=== PATIENT | female | born 1945 | race Caucasian/White ===

== ENCOUNTER 2018-04-23 09:49 | Day surgery (SDC) | payer MEDICARE, OTHER ==
[2018-04-23] MEDS ORDERED: LACTATED RINGERS 1,000 ML IV ONE ×4 (10:10→10:55)
[2018-04-23] MEDS ORDERED: fentaNYL 250 MCG/5 ML VIAL IVP ONE (10:26)
[2018-04-23] MEDS ORDERED: MIDAZOLAM 2 MG/2 ML VIAL IVP ONE (10:26)
[2018-04-23 11:58] VITALS: BP 111/68
== END 2018-04-23 09:50 | disposition home or self-care (01) ==
LOC: SDS 09:49
PROVIDERS: ATTEND Surgery
PROC: 0DJD8ZZ Inspection of Lower Intestinal Tract, Via Natural or Artificial Opening Endoscopic (ICD-10-PCS; principal; 2018-04-23 10:45)
DX: Z12.11 Encounter for screening for malignant neoplasm of colon (principal); K57.30 Diverticulosis of large intestine without perforation or abscess without bleeding; K64.8 Other hemorrhoids; Z80.0 Family history of malignant neoplasm of digestive organs
CPT/HCPCS: G0105; J3010; J7120

== ENCOUNTER 2019-09-23 14:08 | Emergency (ER) | payer MEDICARE, OTHER ==
[2019-09-23 14:51] LABS: BASOPHILS % (AUTO) 0.2 %; EOSINOPHILS % (AUTO) 0.5 %; HGB - HEMOGLOBIN 12.1 g/dL (12.0-16.0); LYMPHOCYTES # (AUTO) 0.7 10^3/uL (1.5-3.5); LYMPHOCYTES % (AUTO) 12.2 %; MEAN CORPUSCULAR HEMOGLOBIN 28.5 pg (27.0-31.0); MEAN CORPUSCULAR HGB CONC 31.8 g/dL (32.0-36.0); MEAN CORPUSCULAR VOLUME 89.9 fL (81.0-99.0); MEAN PLATELET VOLUME 9.2 fL (7.9-10.8); MONOCYTES # (AUTO) 0.4 10^3/uL (0.0-1.0); MONOCYTES % (AUTO) 6.9 %; NEUTROPHILS # (AUTO) 4.4 10^3/uL (1.5-6.6); PLT - PLATELET COUNT 336 10^3/uL (130-450); RED BLOOD COUNT 4.24 10^6/uL (4.20-5.40); RED CELL DISTRIBUTION WIDTH 18.2 % (12.0-15.0); WHITE BLOOD COUNT 5.5 x10^3/uL (4.8-10.8)
[2019-09-23 15:09] LABS: ALBUMIN 3.9 g/dL (3.2-5.5); ALBUMIN/GLOBULIN RATIO 1.1 (1.0-2.2); BILIRUBIN,TOTAL 0.7 mg/dL (0.2-1.0); CALCIUM 8.4 mg/dL (8.5-10.3); CREATININE 0.5 mg/dL (0.4-1.0); TOTAL PROTEIN 7.6 g/dL (6.7-8.2)
[2019-09-23] MEDS ORDERED: SODIUM CHLORIDE 0.9% 1,000 ML IV ONE ×2 (15:37)
--- NOTE | 2019-09-23 16:04 | ED Physician Documentation ---
History of Present Illness - Stated complaint Stated Complaint: N/V/D - Chief complaint Chief Complaint: Abd Pain - History obtained from History obtained from: Patient, Family - History of Present Illness Timing: How many weeks ago (6) Pain level max: 3 Pain level now: 0 - Additonal information Additional information: 74-year-old female presents to the emergency department with intermittent diarrhea for the past 6 weeks since returning from [facility]. She saw her doctor, had negative stool cultures and negative C. difficile testing. She was given azithromycin for presumed traveler's diarrhea. She took this once, but states that her gastroesophageal reflux disease worsened from this and so she stopped it. She states that she has diarrhea 0-8 times per day. No fevers. No blood in the stool. Occasional abdominal cramping. Review of Systems Constitutional: denies: Fever, Chills Respiratory: denies: Cough GI: reports: Diarrhea. denies: Abdominal Pain, Vomiting, Hematemesis, Bloody / black stool Skin: denies: Rash Musculoskeletal: denies: Neck pain, Back pain Neurologic: denies: Headache PD PAST MEDICAL HISTORY - Past Medical History Cardiovascular: None Respiratory: None Endocrine/Autoimmune: HyPOthyroidism GI: GERD, Hepatitis, Diverticulitis, Other : None HEENT: None Psych: Anxiety Musculoskeletal: Osteoarthritis, Chronic back pain Derm: None - Past Surgical History Past Surgical History: Yes General: Colonoscopy Ortho: Other HEENT: Tonsil/Adenoidectomy - Present Medications Home Medications: Ambulatory Orders Medication Instructions Recorded Confirmed Levothyroxine [Synthroid] 125 mcg PO DAILY 06/23/15 04/23/18 Omeprazole [PriLOSEC] 20 mg PO DAILY 06/23/15 04/23/18 PARoxetine [Paxil] 30 mg PO DAILY 06/23/15 04/23/18 azaTHIOprine [Imuran] 50 mg PO DAILY 06/23/15 04/23/18 Anastrozole [Arimidex] 1 mg PO DAILY 04/23/18 04/23/18 Duran Cit/Mag/D3/Zn/[place] Continuous [place]urn/[place]/Bor 1 each PO DAILY 04/23/18 04/23/18 [Citracal-Vit D + Magnesium Tab] [place]-3/Dha/Epa/Fish Oil [Fish Oil 1 each PO DAILY 04/23/18 04/23/18 1,000 mg Softgel] raNITIdine HCl [Zantac] 300 mg PO BID 04/23/18 04/23/18 Metronidazole [Flagyl] 500 mg PO TID #30 tablet 09/23/19 - Allergies Allergies/Adverse Reactions: Allergies Allergy/AdvReac Type Severity Reaction Status Date / Time fluconazole [From Diflucan] Allergy Hives Verified 09/23/19 14:27 - Social History Does the pt smoke?: No Smoking Status: Never smoker Does the pt drink ETOH?: Yes Does the pt have substance abuse?: No PD ED PE NORMAL - Vitals Vital signs reviewed: Yes - General General: Alert and oriented X 3, No acute distress, Well developed/nourished - HEENT HEENT: Moist mucous membranes - Neck Neck: Supple, no meningeal sign - Cardiac Cardiac: RRR, Strong equal pulses - Respiratory Respiratory: No respiratory distress, Clear bilaterally - Abdomen Abdomen: Soft, Non tender, Non distended - Derm Derm: Warm and dry - Extremities Extremities: No edema - Neuro Neuro: Alert and oriented X 3 - Psych Psych: Normal mood, Normal affect Results - Vitals Vitals: Vital Signs - 24 hr 09/23/19 09/23/19 14:24 17:05 Temperature 36.7 C Heart Rate 113 H 93 Respiratory 16 18 Rate Blood Pressure 109/56 L 117/70 O2 Saturation 96 97 Oxygen O2 Source Room air - Labs Labs: Microbiology 09/23/19 17:15 Campylobacter Antigen Assay - Final Stool Laboratory Tests 09/23/19 09/23/19 09/23/19 14:47 14:47 15:35 WBC 5.5 RBC 4.24 Hgb 12.1 Hct 38.1 MCV 89.9 MCH 28.5 MCHC 31.8 L RDW 18.2 H Plt Count 336 MPV 9.2 Neut # (Auto) 4.4 Lymph # (Auto) 0.7 L Motley # (Auto) 0.4 Eos # (Auto) 0.0 Baso # (Auto) 0.0 Absolute Nucleated RBC 0.00 Nucleated RBC % 0.0 Sodium 136 Potassium 3.8 Chloride 103 Carbon Dioxide 22 Anion Gap 11.0 BUN 13 Creatinine 0.5 Estimated GFR (MDRD) 120 Glucose 116 H Calcium 8.4 L Total Bilirubin 0.7 AST 23 ALT 14 Alkaline Phosphatase 62 Total Protein 7.6 Albumin 3.9 Globulin 3.7 Albumin/Globulin Ratio 1.1 Lipase 29 Urine Color YELLOW Urine Clarity CLEAR Urine pH 6.0 Ur Specific [place] 1.025 Urine Protein NEGATIVE Urine Glucose (UA) NEGATIVE Urine Ketones 15 H Urine Occult Blood NEGATIVE Urine Nitrite NEGATIVE Urine Bilirubin NEGATIVE Urine Urobilinogen 0.2 (NORMAL) Ur Leukocyte Esterase NEGATIVE Ur Microscopic Review NOT INDICATED Urine Culture Comments NOT INDICATED PD MEDICAL DECISION MAKING - ED course Complexity details: reviewed results, re-evaluated patient, considered differential, d/w patient, d/w family ED course: Patient is well-appearing, nontoxic. Feels better after IV fluids. Will place on metronidazole for home and see if this improves her symptoms. Stool was sent for culture as well as ova and parasites. No fevers. No blood in the stool. We will have her follow-up with her doctor for further care. Already had a negative C. difficile test this week. Patient counseled regarding signs and symptoms for which I believe and urgent re-evaluation would be necessary. Patient with good understanding of and agreement to plan and is comfortable going home at this time This document was made in part using voice recognition software. While efforts are made to proofread this document, sound alike and grammatical errors may occur. Departure - Departure Disposition: 01 Home, Self Care Clinical Impression: Dehydration Diarrhea Qualifiers: Diarrhea type: unspecified type Qualified Code(s): R19.7 - Diarrhea, unspecified Condition: Good Instructions: ED Dehydration, ED Diarrhea Bacterial Follow-Up: Provider,Other [Primary Care Provider] - Within 1 week Prescriptions: Metronidazole [Flagyl] 500 mg PO TID #30 tablet Comments: We will trial you on Flagyl and see if this improves her symptoms. Return if you worsen. Follow-up with your doctor for further care. Discharge Date/Time: 09/23/19 17:30
[2019-09-23 16:52] LABS: BILIRUBIN,URINE NEGATIVE (NEGATIVE); GLUCOSE, URINE (UA) NEGATIVE (NEGATIVE); KETONES,URINE (UA) 15 mg/dL (NEGATIVE); LEUKOCYTE ESTERASE, URINE NEGATIVE (NEGATIVE); NITRITE,URINE NEGATIVE (NEGATIVE); OCCULT BLOOD,URINE NEGATIVE (NEGATIVE); PROTEIN,URINE NEGATIVE (NEGATIVE); UROBILINOGEN,URINE 0.2 (NORMAL) E.U./dL (NORMAL)
[2019-09-23 16:53] LABS: CLARITY,URINE CLEAR (CLEAR)
[2019-09-23 17:06] VITALS: BP 117/70
== END 2019-09-23 17:30 | disposition home or self-care (01) ==
LOC: ED 14:08
DX: E86.0 Dehydration (principal); R19.7 Diarrhea, unspecified; K21.9 Gastro-esophageal reflux disease without esophagitis; Z87.19 Personal history of other diseases of the digestive system
CPT/HCPCS: 36415; 80053; 81001; 81003; 83690; 85025; 87045; 87046; 87086; 87177; 87209; 99283; 99284

== ENCOUNTER 2020-08-01 13:42 | Outpatient (CLI) | payer MEDICARE, OTHER | END 2020-08-01 23:59 | disposition home or self-care (01) | LOC: LAB.R 13:42 | PROVIDERS: ATTEND Physician Assistant Medical | DX: N39.0 Urinary tract infection, site not specified (principal) | CPT/HCPCS: 87086 ==

== ENCOUNTER 2021-11-21 13:20 | Inpatient (IN) | payer MEDICARE, OTHER ==
--- NOTE | 2021-11-21 13:49 | ED Physician Documentation ---
PD HPI FOCAL NEURO - Stated complaint Stated Complaint: AMS - Chief complaint Chief Complaint: Neuro - History obtained from History obtained from: Patient, Family - Additional information Additional information: 76-year-old woman with history of breast cancer remotely in remission, Sjogren's syndrome and she had a hip replacement [address] [facility]. She left the hospital yesterday on oxycodone for pain but was doing well, this morning awoke at 830 and was very confused per the with significant memory deficits. No focal neurologic deficits. Patient is frustrated by lack of knowledge of what is going on. Has no other complaints right now. She has no history of stroke, TIA, hypertension or hyperlipidemia. Review of Systems Ten Systems: 10 systems reviewed and negative Constitutional: reports: Reviewed and negative Eyes: reports: Reviewed and negative Ears: reports: Reviewed and negative Nose: reports: Reviewed and negative Throat: reports: Reviewed and negative Cardiac: reports: Reviewed and negative PD PAST MEDICAL HISTORY - Past Medical History Cardiovascular: None Respiratory: None Endocrine/Autoimmune: HyPOthyroidism GI: GERD, Hepatitis, Diverticulitis, Other : None HEENT: None Psych: Anxiety Musculoskeletal: Osteoarthritis, Chronic back pain Derm: None - Past Surgical History Past Surgical History: Yes General: Colonoscopy Ortho: Other HEENT: Tonsil/Adenoidectomy - Present Medications Home Medications: Ambulatory Orders Medication Instructions Recorded Confirmed Levothyroxine [Synthroid] 125 mcg PO DAILY 06/23/15 11/21/21 PARoxetine [Paxil] 30 mg PO DAILY 06/23/15 11/21/21 azaTHIOprine [Imuran] 50 mg PO DAILY 06/23/15 11/21/21 Duran Cit/Mag/D3/Zn/[place]vey Chief/[place]/Bor 1 each PO DAILY 04/23/18 11/21/21 [Citracal-Vit D + Magnesium Tab] oxyCODONE [Roxicodone] 5 - 10 mg PO Q4-6H PRN 11/21/21 11/21/21 traMADol [Ultram] 50 - 100 mg PO Q4-6H PRN 11/21/21 11/21/21 - Allergies Allergies/Adverse Reactions: Allergies Allergy/AdvReac Type Severity Reaction Status Date / Time bee venom protein (honey bee) Allergy Edema Verified 11/21/21 13:31 fluconazole [From Diflucan] Allergy Hives Verified 12/30/19 14:27 - Social History Does the pt smoke?: No Smoking Status: Never smoker Does the pt drink ETOH?: Yes Does the pt have substance abuse?: No PD ED PE NORMAL - Vitals Vital signs reviewed: Yes - General General: Other (She is alert and oriented to person and place but not time or events, she does not know why she is here and seems frustrated by it. She knows her age and her birthday. 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, No motor deficit, No sensory deficit, Normal speech Eye Opening: Spontaneous Motor: Obeys Commands Verbal: Confused GCS Score: 14 - Psych Psych: Normal mood, Normal affect NIHSS - Time Time: 13:40 - Level of Consciousness Level of consciousness: (0) Alert, Keenly responsive LOC Questions: (1) Answers one Q correctly (Year correct, month not correct) LOC Commands: (0) Performs both correctly - Gaze Best Gaze: (0) Normal - Visual Visual: (0) No loss - Facial Palsy Facial Palsy: (0) Normal, symmetrical movement - Motor Arms (both separate) Motor Arm (right): (0) No drift Motor Arm (left): (0) No drift - Motor Legs (both separate) Motor Leg (right): (0) No drift Motor Leg (left): (0) No drift - Limb Ataxia Limb Ataxia: (0) Absent - Sensory Sensory: (0) Normal - Best Language Best Language: (0) No aphasia - Dysarthria Dysarthria: (0) Normal - Extinction and Inattention (formally neg Extinction and inattention: (0) No abnormality - Total Score/Results Total Score/Result: 1 Results - Vitals Vitals: Vital Signs - 24 hr 11/21/21 11/21/21 11/21/21 13:25 13:43 14:11 Temperature 35.7 C L 36.4 C L Heart Rate 92 87 86 Respiratory 16 22 17 Rate Blood Pressure 111/83 H 139/72 H 127/78 O2 Saturation 94 99 96 11/21/21 11/21/21 15:12 15:30 Temperature 36.9 C Heart Rate 85 85 Respiratory 22 22 Rate Blood Pressure 135/77 H 137/78 H O2 Saturation 97 97 Oxygen O2 Source Room air - EKG (time done) 1350 Rate: Rate (enter#) (87) Rhythm: NSR [place]: Normal Intervals: Normal VA QRS: Normal Ischemia: Q waves (III only, non specific) Computer interpretation: Agree with computer - Labs Labs: Laboratory Tests 11/21/21 11/21/21 11/21/21 13:54 13:58 14:09 WBC 6.1 RBC 3.17 L Hgb 9.3 L Hct 28.8 L MCV 90.9 MCH 29.3 MCHC 32.3 RDW 16.4 H Plt Count 189 MPV 9.7 Neut # (Auto) 5.3 Lymph # (Auto) 0.5 L O'Brien # (Auto) 0.3 Eos # (Auto) 0.0 Baso # (Auto) 0.0 Absolute Nucleated RBC 0.00 Nucleated RBC % 0.0 Sodium 135 Potassium 4.4 Chloride 101 Carbon Dioxide 25 Anion Gap 9.0 BUN 13 Creatinine 0.6 Estimated GFR (MDRD) 97 Glucose 99 POC Whole Bld Glucose 95 Calcium 8.7 Total Bilirubin 0.8 AST 26 ALT 14 Alkaline Phosphatase 55 Total Protein 6.8 Albumin 3.5 Globulin 3.3 Albumin/Globulin Ratio 1.1 Salicylates < 6.0 Urine Opiates Screen Ur Oxycodone Screen Urine Methadone Screen Ur Propoxyphene Screen Acetaminophen < 10 L Ur Barbiturates Screen Ur Tricyclics Screen Ur Phencyclidine Scrn Ur Amphetamine Screen U Methamphetamines Scrn U Benzodiazepines Scrn Urine Cocaine Screen U Cannabinoids Screen Ethyl Alcohol < 5.0 11/21/21 15:30 WBC RBC Hgb Hct MCV MCH MCHC RDW Plt Count MPV Neut # (Auto) Lymph # (Auto) O'Brien # (Auto) Eos # (Auto) Baso # (Auto) Absolute Nucleated RBC Nucleated RBC % Sodium Potassium Chloride Carbon Dioxide Anion Gap BUN Creatinine Estimated GFR (MDRD) Glucose POC Whole Bld Glucose Calcium Total Bilirubin AST ALT Alkaline Phosphatase Total Protein Albumin Globulin Albumin/Globulin Ratio Salicylates Urine Opiates Screen NEGATIVE Ur Oxycodone Screen POSITIVE H Urine Methadone Screen NEGATIVE Ur Propoxyphene Screen NEGATIVE Acetaminophen Ur Barbiturates Screen NEGATIVE Ur Tricyclics Screen NEGATIVE Ur Phencyclidine Scrn NEGATIVE Ur Amphetamine Screen NEGATIVE U Methamphetamines Scrn NEGATIVE U Benzodiazepines Scrn NEGATIVE Urine Cocaine Screen NEGATIVE U Cannabinoids Screen NEGATIVE Ethyl Alcohol - Rads (name of study) CTA of the head and neck remote encephalopathy encephalomalacia right posterior parietal and occipital lobes degenerative changes, nothing vascular fi Radiology: EMP read contemporaneously PD MEDICAL DECISION MAKING - ED course ED course: 76-year-old woman with a syndrome most consistent with transient global amnesia. CT angiography of the head and neck with was without acute issue. During her stay in the emergency department she did not seem to have improved much. Spoke with Dr. Marion for observation at 3:50 PM. Departure - Departure Disposition: ED Place in Observation Clinical Impression: Transient global amnesia Condition: Stable
[2021-11-21] MEDS ORDERED: IOVERSOL 320 100 ML VIAL IVP ONE ×2 (13:57→14:51)
[2021-11-21 14:01] LABS: BASOPHILS % (AUTO) 0.2 %; HCT - HEMATOCRIT 28.8 % (37.0-47.0); HGB - HEMOGLOBIN 9.3 g/dL (12.0-16.0); LYMPHOCYTES # (AUTO) 0.5 10^3/uL (1.5-3.5); LYMPHOCYTES % (AUTO) 7.4 %; MEAN CORPUSCULAR HEMOGLOBIN 29.3 pg (27.0-31.0); MEAN CORPUSCULAR HGB CONC 32.3 g/dL (32.0-36.0); MEAN CORPUSCULAR VOLUME 90.9 fL (81.0-99.0); MEAN PLATELET VOLUME 9.7 fL (7.9-10.8); MONOCYTES # (AUTO) 0.3 10^3/uL (0.0-1.0); MONOCYTES % (AUTO) 5.1 %; NEUTROPHILS # (AUTO) 5.3 10^3/uL (1.5-6.6); PLT - PLATELET COUNT 189 10^3/uL (130-450); RED BLOOD COUNT 3.17 10^6/uL (4.20-5.40); RED CELL DISTRIBUTION WIDTH 16.4 % (12.0-15.0); WHITE BLOOD COUNT 6.1 x10^3/uL (4.8-10.8)
[2021-11-21 14:27] LABS: ACETAMINOPHEN < 10 ug/mL (10-30); ALBUMIN 3.5 g/dL (3.2-5.5); ALBUMIN/GLOBULIN RATIO 1.1 (1.0-2.2); ALKALINE PHOSPHATASE 55 IU/L (42-121); ALT ALANINE AMINOTRANSFERASE 14 IU/L (10-60); AST ASPARTATE AMINOTRANSFERASE 26 IU/L (10-42); BILIRUBIN,TOTAL 0.8 mg/dL (0.2-1.0); BUN - BLOOD UREA NITROGEN 13 mg/dL (6-20); CALCIUM 8.7 mg/dL (8.5-10.3); CARBON DIOXIDE - CO2 25 mmol/L (21-32); CHLORIDE 101 mmol/L (101-111); CREATININE 0.6 mg/dL (0.4-1.0); ETOH - ETHANOL < 5.0 mg/dL; GFR - MDRD 97 (>89); GLUCOSE 99 mg/dL (70-100); POTASSIUM 4.4 mmol/L (3.5-5.0); SALICYLATE < 6.0 mg/dL; SODIUM 135 mmol/L (135-145); TOTAL PROTEIN 6.8 g/dL (6.7-8.2)
--- NOTE | 2021-11-21 15:26 | CT Report ---
PROCEDURE: ANGIO HEAD W/WO INDICATIONS: ams, likely TGA CONTRAST: IV CONTRAST: Optiray 320 ml: 80 PO CONTRAST: *NO PO CONTRAST TECHNIQUE: Precontrast 4.5 mm thick angled axial sections acquired from the foramen magnum to the vertex. Afte r the administration of intravenous contrast, 1 mm thick sections acquired through the [place] of [place] is. Postcontrast 4.5 mm thick sections then re-acquired from the foramen magnum to the vertex. 3-di mensional ughyrga-vyoaoeymt-ulikesstnf (MIP) and/or volume rendering reformats were acquired of the c entral intracranial vasculature. For radiation dose reduction, the following was used: automated ex posure control, adjustment of mA and/or kV according to patient size. COMPARISON: None FINDINGS: Image quality: Excellent. Anterior circulation: Intracranial internal carotid arteries are normal in size and flow. The flow within the paired anterior cerebral arteries is normal and symmetric. The flow within the middle cer ebral arteries is normal and symmetric. The anterior communicating artery is seen. No aneurysms are seen. No hemodynamically significant stenosis identified. Posterior circulation: Visualized portions of the vertebral arteries demonstrate normal caliber, and join to form a normal appearing basilar artery. Flow within the posterior cerebral arteries is norm al and symmetric. No aneurysms are seen. No hemodynamically significant stenosis is identified. CSF spaces: Ventricles are normal in size and shape. Basal cisterns are patent. No extra-axial flu id collections. Brain: No midline shift. No intracranial bleeds or masses. Hickman-white matter interface appears int act. No areas of abnormal enhancement. Incidental note of mild encephalomalacia involving the medial margins between the right posterior parietal and occipital lobes. This is compatible with a remote p rocess. Skull and face: Calvarium and facial bones appear intact, without suspicious lesions. Sinuses: Visualized sinuses and mastoids are clear. IMPRESSION: CT head without acute intracranial abnormalities. Negative CT angiogram of the intracranial arterial vasculature without evidence for occlusion, dissec tion, aneurysm, or hemodynamically significant stenosis. Reviewed by: Denny Bejarano MD on 11/21/2021 2:25 PM [place] Approved by: Denny Bejarano MD on 11/21/2021 2:25 PM [facility] Station ID: [id number]
--- NOTE | 2021-11-21 15:28 | CT Report ---
PROCEDURE: ANGIO NECK W INDICATIONS: ams, likely TGA CONTRAST: IV CONTRAST: Optiray 320 ml: 80 PO CONTRAST: *NO PO CONTRAST TECHNIQUE: After the administration of intravenous contrast, 1.5 mm axial sections acquired from the aortic arch to the [place] of [place]. Coronal 3-D maximum intensity projection (MIP) and/or volume rendering ref ormats were then performed. For radiation dose reduction, the following was used: automated exposur e control, adjustment of mA and/or kV according to patient size. COMPARISON: None. FINDINGS: Image quality: Excellent. Carotid system: The great vessels demonstrate a conventional anatomy as they arise from the aortic a rc. The origins of the common carotid arteries appear patent. The common carotid arteries demonstr ate normal calibers and courses. The bifurcation regions appear normal bilaterally. The internal ca rotid arteries demonstrate normal caliber and course. Posterior circulation: The origins of the vertebral arteries appear patent. The more superior porti ons of the vertebral arteries demonstrate normal course and caliber. They join to form a normal appe aring basilar artery. Soft tissues: Visualized neck soft tissues demonstrate no suspicious abnormalities. The thyroid is normal in size and there are no incidental findings. Bones: No suspicious bony lesions. Visualized cervical spine appears normally aligned. Moderate mu ltilevel cervical spondylosis with degenerative endplate changes and disc space loss seen throughout the cervical spine. Prominent degenerative endplate changes. Findings are most pronounced from C4-5 t hrough C6-C7. No acute compression fractures. Craniocervical junction is intact. IMPRESSION: 1. CT cervical spine without acute fracture or malalignment. Moderate multilevel cervical spondylosis . 2. Negative CT angiogram of the neck arterial vasculature without evidence for hemodynamically signif icant stenosis, occlusion, or dissection. The estimate of stenosis included in the report of the imaging study was calculated using the NASCET method CLINICAL RECOMMENDATION STATEMENTS: In patients <35 years with an ITN detected on CT, MRI, or extrathyroidal ultrasound, the Committee re commends further evaluation with dedicated thyroid ultrasound if the nodule is "e1 cm and has no susp icious imaging features, and if the patient has normal life expectancy. In patients "e35 years with an ITN detected on CT, MRI, or extrathyroidal ultrasound, the Committee r ecommends further evaluation with dedicated thyroid ultrasound if the nodule is "e1.5 cm and has no s uspicious imaging features, and if the patient has normal life expectancy. (ACR, 2014) Reviewed by: Denny Bejarano MD on 11/21/2021 2:27 PM [place] Approved by: Denny Bejarano MD on 11/21/2021 2:27 PM [facility] Station ID: [id number]
[2021-11-21 15:34] LABS: MUDS CUTOFF CONCENTRATIONS CUTOFF CONC BELOW:
[2021-11-21 15:49] LABS: AMPHETAMINE SCREEN,URINE NEGATIVE (NEGATIVE); BARBITURATE SCREEN,UR NEGATIVE (NEGATIVE); BENZODIAZEPINES SCREEN, URINE NEGATIVE (NEGATIVE); COCAINE SCREEN URINE NEGATIVE (NEGATIVE); METHADONE SCREEN, URINE NEGATIVE (NEGATIVE); METHAMPHETAMINES SCREEN, URINE NEGATIVE (NEGATIVE); OPIATE SCREEN, URINE NEGATIVE (NEGATIVE); OXYCODONE SCREEN, URINE POSITIVE (NEGATIVE); PROPOXYPHENE SCREEN, URINE NEGATIVE (NEGATIVE); THC CANNABINOID SCREEN, URINE NEGATIVE (NEGATIVE); TRICYCLIC ANTIDEPRESSANT,URINE NEGATIVE (NEGATIVE)
--- NOTE | 2021-11-21 15:56 | HISTORY & PHYSICAL EXAMINATION ---
Chief Complaint - Chief Complaint Chief Complaint: confusion and memory deficits History of Present Illness - Admitted From Admitted From:: [facility] ED - History Obtained From Records Reviewed: [facility] History obtained from: Patient, (Zacarias), and Medical Records Exam Limitations: Patient has memeory deficits - History of Present Illness HPI Comment/Other: Pleasant well nourished 76 year old female with history of left breast cancer with lumpectomy in 2016, Sjogren's syndrome on immunosuppressants, and right hip replacement on 11/19/21 at [facility]. She was discharged yesterday on oxycodone and Tramadol for pain and doing well. According to (Zacarias) at 0800 today she woke up and was confused with amnesia. She continued to repeat herself and had no recollection of her recent surgery or of the events over the past year that led up to the event. 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 She is alert to self, birthday, location, month but not year. She is forgetful of the situations leading up hospital visit and does not recall events over the last few years. In the emergency room the CTA of neck is negative and CTA of the head was negative with incidental findings of "mild encephalomalacia involving the medial margins between the right posterior parietal and occipital lobes". No focal neurological deficits, CN II-XII intact. Equal strength bilaterally to upper and lower extremities. reports that the patient does not have a history of migraines, strokes, TIAs, epilepsy, hypertension, or hyperlipidemia. 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: reports: Breast cancer (Lumpectomy 2016) : reports: None HEENT: reports: None Psych: reports: Anxiety Musculoskeletal: reports: Osteoarthritis, Chronic back pain Derm: reports: None (Post-op incison to right hip) MRSA Hx?: No - Past Surgical History General: reports: Colonoscopy Ortho: reports: Other (Right Hip Replacement on 11/19/21) HEENT: reports: Tonsil/Adenoidectomy - Family & Social History Family History: Mother: (Mom passed at 95 of old age and father passed at 82 with hx of colon cancer), Father: , Sister: Alive and Well, Brother: Alive and Well Living arrangement: At home Living Situation: With spouse/s.o. 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 She moved to [place] with her 40 years ago. They have 2 adult children a son and daughter who live [place] in [facility]. - Substance History Use: Uses substance without health or social issues: Alcohol (Drinks 1-2 glasses of wine nightly. Stopped 1 week ago in preperation for hip surgery.) Abuse: Recurrent use of substance despite neg consequences: NONE Dependence: Experiences withdrawal or developed tolerances: NONE - POLST Patient has POLST: No POLST Status: Full Code Meds/Allgy - Home Medications Home Medications: Ambulatory Orders Medication Instructions Recorded Confirmed Levothyroxine [Synthroid] 125 mcg PO DAILY 06/23/15 11/21/21 PARoxetine [Paxil] 30 mg PO DAILY 06/23/15 11/21/21 azaTHIOprine [Imuran] 50 mg PO DAILY 06/23/15 11/21/21 Duran Cit/Mag/D3/Zn/Production Team Member/[place]/Bor 1 each PO DAILY 04/23/18 11/21/21 [Citracal-Vit D + Magnesium Tab] oxyCODONE [Roxicodone] 5 - 10 mg PO Q4-6H PRN 11/21/21 11/21/21 traMADol [Ultram] 50 - 100 mg PO Q4-6H PRN 11/21/21 11/21/21 - Allergies Allergies/Adverse Reactions: Allergies Allergy/AdvReac Type Severity Reaction Status Date / Time bee venom protein (honey bee) Allergy Edema Verified 11/21/21 13:31 fluconazole [From Diflucan] Allergy Hives Verified 09/23/19 14:27 Review of Systems - Constitutional Constitutional: denies: Fatigue, Fever, Chills, Malaise, Weakness - Eyes Eyes: reports: Other (Dry eyes). denies: Pain, Blurred vision, Vision loss - Ears, Nose & Throat Ears, Nose & Throat: reports: Vertigo (When getting out of bed). denies: Hearing loss, Tinnitus - Cardiovascular Cariovascular: denies: Irregular heart rate, Palpitations, Chest pain, Edema, L ightheadedness - Respiratory Respiratory: denies: Cough, Orthopnea, SOB at rest - Gastrointestinal Gastrointestinal: denies: Abdominal pain, Constipation, Diarrhea, Change in bowel habits, Nausea, Vomiting - Genitourinary Genitourinary: denies: Dysuria, Frequency, Urgency, Hematuria - Musculoskeletal Musculoskeletal: reports: Joint swelling. denies: Muscle pain - Integumentary Integumentary: denies: Rash, Pruritis - Neurological Neurological: reports: Headache (Intermittent headaches). denies: General weakness, Focal weakness, Dizziness - Psychiatric Psychiatric: denies: Depression, Anxiety - Endocrine Endocrine: denies: Polyuria, Polydypsia, Intolerance to cold, Intolerance to heat - Hematologic/Lymphatic Hematologic/Lymphatic: denies: Anemia, Bruising, Petechiae - All Other Systems All Other Systems: reports: Reviewed and negative Prior Level of Functionality: Patient is independent and ambulates without devices. At baseline she is able to preform activities of daily living independently. Exam - Vital Signs Reviewed Vital Signs: Yes Vital Signs: Vital Signs x48h Temp Pulse Resp BP Pulse Ox 11/21/21 15:30 85 22 137/78 H 97 11/21/21 15:12 36.9 C 85 22 135/77 H 97 11/21/21 14:11 86 17 127/78 96 11/21/21 13:43 36.4 C L 87 22 139/72 H 99 11/21/21 13:25 35.7 C L 92 16 111/83 H 94 - Physical Exam General Appearance: positive: No acute distress, Alert Eyes Bilateral: positive: Normal inspection, PERRL, EOMI ENT: positive: Dry mucous membranes Neck: positive: Nml inspection, No JVD Respiratory: positive: Chest non-tender, No respiratory distress, Breath sounds nml Cardiovascular: positive: Regular rate & rhythm, No murmur Peripheral Pulses: positive: 2+ Abdomen: positive: Non-tender, No organomegaly, Nml bowel sounds, No distention Back: positive: Nml inspection Skin: positive: Color nml, No rash, Warm, Dry, Other (10 cm incision to right hip insitu.) Extremities: positive: Non-tender, Full ROM, Nml appearance, No pedal edema Neurologic/Psychiatric: positive: CN's nml (2-12), Motor nml, Sensation nml, Disoriented to time (Oriented to month but not date or year.), Other (Patient has remote memory deficit over past 2 years.) Conclusion/Plan - Problem List (1) Transient global amnesia Conclusion/Plan: Patient was admitted to the hospital as observation today after waking up at 0800 with retrograde amnesia and repetitive questions. She recently had right hip replacement on 11/19/21 and was discharged home on 11/20/21. She is alert to self, location, and month but not year or day. She does not recall events leading up to surgery over the past year. CN II- XII intact. Equal strength bilaterally to upper and lower extremities. BMP on admission unremarkable. Plan: Continuous telemetry. Echocardiogram tomorrow to rule out cardiac cause. Neuro checks every 4 hours to monitor for changes. MRI tomorrow to rule out acute ischemia. (2) History of hip replacement Conclusion/Plan: Patient has a recent history or right hip replacement on 11/19/2021 at [facility] and was discharged home yesterday on 11/20/2021. She has 10cm incision to right hip insitu with postop dressing. She was taking oxycodone and tramadol for pain. Plan: Continue to place ice on incision site. Resume post-op pain medications after reconciliation. Out of bed as tolerated with stand by assistance. PT consult tomorrow. (3) Sjogrens syndrome Conclusion/Plan: Patient has a history of Sjogren's syndrome with manifestation of dry mouth and eyes. reports patient takes immunosuppressant but unsure of what or how much for her Sjogren's syndrome. Plans to go home to get medications and bring them to the hospital. No salivary gland enlargement. Plan: Provide oral hygiene and add artificial saliva as needed. Provide eye hydrating drops as needed. Resume medications when reconciled. - Lab Results Lab results reviewed: Yes Fish Bones: 11/21/21 13:54 11/21/21 14:09 - Diagnostic Imaging Results Diagnostic Imaging Results: positive: Final report reviewed - EKG Results EKG Interpreted Independently: Yes EKG Comparison: Unchanged from prior EKG EKG Findings: Q waves in inferior leads, unchanged from 2015 EKG. NO chest pain or dyspnea. Core Measures - Anticipated LOS I expect patient to be DC'd or transferred within 96 hours.: Yes
[2021-11-21] MEDS ORDERED: traMADol 50 MG TABLET PO STA (17:07)
[2021-11-21] MEDS ORDERED: oxyCODONE 5 MG TABLET PO PRN (20:14)
[2021-11-21] MEDS ORDERED: ACETAMINOPHEN 325 MG TABLET PO PRN (20:14)
[2021-11-21] MEDS ORDERED: IBUPROFEN 400 MG TABLET PO PRN (20:14)
[2021-11-21] MEDS ORDERED: SODIUM CHLORIDE FLUSH 0.9% 10 ML SYRINGE IVP PRN (20:14)
[2021-11-21] MEDS ORDERED: ONDANSETRON 4 MG/2 ML VIAL IVP PRN (20:14)
[2021-11-22] MEDS: SODIUM CHLORIDE FLUSH 0.9% 10 ML SYRINGE IVP SCH ×3 (04:52→17:16)
[2021-11-22 04:54] LABS: BASOPHILS % (AUTO) 0.2 %; HCT - HEMATOCRIT 25.9 % (37.0-47.0); HGB - HEMOGLOBIN 8.5 g/dL (12.0-16.0); LYMPHOCYTES # (AUTO) 0.8 10^3/uL (1.5-3.5); LYMPHOCYTES % (AUTO) 18.5 %; MEAN CORPUSCULAR HEMOGLOBIN 29.1 pg (27.0-31.0); MEAN CORPUSCULAR HGB CONC 32.8 g/dL (32.0-36.0); MEAN CORPUSCULAR VOLUME 88.7 fL (81.0-99.0); MEAN PLATELET VOLUME 9.7 fL (7.9-10.8); MONOCYTES # (AUTO) 0.4 10^3/uL (0.0-1.0); MONOCYTES % (AUTO) 8.6 %; NEUTROPHILS # (AUTO) 3.1 10^3/uL (1.5-6.6); NEUTROPHILS % (AUTO) 72.5 %; PLT - PLATELET COUNT 192 10^3/uL (130-450); RED BLOOD COUNT 2.92 10^6/uL (4.20-5.40); RED CELL DISTRIBUTION WIDTH 16.2 % (12.0-15.0); WHITE BLOOD COUNT 4.3 x10^3/uL (4.8-10.8)
[2021-11-22 04:58] LABS: CALCIUM 8.6 mg/dL (8.5-10.3); CREATININE 0.6 mg/dL (0.4-1.0); POTASSIUM 3.3 mmol/L (3.5-5.0)
[2021-11-22] MEDS: LEVOTHYROXINE 125 MCG TABLET PO SCH (06:13)
[2021-11-22] MEDS ORDERED: AZATHIOPRINE 50 MG PO SCH (09:00)
[2021-11-22] MEDS: PARoxetine 10 MG TABLET PO SCH (09:24)
[2021-11-22] MEDS ORDERED: GADOBUTROL 7.5 MMOL/7.5 ML VIAL ONE (10:18)
[2021-11-22] MEDS ORDERED: POTASSIUM CHLORIDE 20 MEQ TABLET PO ONE (10:20)
[2021-11-22] MEDS ORDERED: KETOROLAC 30 MG/ML VIAL IVP PRN (10:45)
--- NOTE | 2021-11-22 11:46 | PHARMACY PROGRESS NOTE ---
- Best Possible Medication History Admit Date and Time: 11/21/21 1831 Processed by: Pharmacy Medication History completed: Yes Patient Interview: Completed Secondary Source(s): Written medication list, Prescription bottles, Spouse/Significant other As the person ultimately responsible for medication therapy, providers are able to order a medication from an existing home medication list in [facility] via the "Reconcile Routine" prior to Confirmation of that medication by customer support associate. Such practice is discouraged except when the physician, in their clinical judgment, deems that a medical need exists for a medication without regard to previous use.
[2021-11-22] MEDS ORDERED: CARBOXYMETHYLCELLULOSE OPHTH DROPS EACHEYE PRN (11:54)
[2021-11-22] MEDS: AZATHIOPRINE 50 MG PO SCH (13:04)
[2021-11-22] MEDS: CEFADROXIL 500 MG PO SCH ×2 (13:04→20:39)
[2021-11-22] MEDS: ASPIRIN EC 81 MG TABLET PO SCH ×2 (13:10→20:17)
[2021-11-22] MEDS: ANASTROZOLE 1 MG TABLET PO SCH (13:10)
--- NOTE | 2021-11-22 13:11 | PROVIDER PROGRESS NOTE ---
Assessment/Plan - Problem List (1) Transient global amnesia Assessment/Plan: Patient was admitted to the hospital as observation yesterday after waking up at 0800 with retrograde amnesia and repetitive questions. She recently had right hip replacement on 11/19/21 and was discharged home on 11/20/21. She is alert to self, location, month and year, not to day. She does not recall events leading up to surgery over the past year. CN II- XII intact. Equal strength bilaterally to upper and lower extremities. BMP on admission unremarkable. 11/21/2021 CTA of head and neck were negative for acute process. MRI of head today showed "no acute intracranial process. no acute ischemia. Moderate to severe atrophy and chronic microvascular ischemic changes. Encephalomalacia within the right occipital lobe suggestive of old infarction". Cardiac Echo with bubble study today showed " Tele Stroke (Dr. Valera) contacted with findings and recommended cholesterol panel along with PT/ OT eval for safety and to have some one with her continually to watch for worsening memory. Dr. Valera said that if this is transient global amnesia is should resolve completely in 1-5 days. Alternatively, if it does not resolve then there is a psychiatric component. Plan: Admit to inpatient status. Continuous telemetry. Cholesterol panel tomorrow. Continue Neuro checks every 4 hours to monitor for changes. (2) Orthostasis Assessment/Plan: According to patient and her , she has a known history of "low blood pressure". During hospitalization her systolic blood pressure ranges 90-130s. While working with PT she was orthostatic with blood pressure readings, 106/64>> 108/64>> 87/51. She denied dizziness during hypotension. Plan: Start on IV fluids normal saline at 83.3ml/hr for 2 liters. Continue to monitor blood pressure. Repeat orthostatic vital signs after she has received 2 liters of fluids. (3) Diffuse brain atrophy Assessment/Plan: Patient present to the ED with global transient amnesia. Today her MRI of the brain showed "Moderate to sever atrophy and chronic microvascular ishcemic changes". Patient and report that she drinks 1 to 2 glasses of white wine a night. 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 Plan: Patient was provided education in minimizing her alcohol consumption and exposure to solvents. Cognitive evaluation when medically cleared. Ammonia level in morning. (4) History of stroke Assessment/Plan: Patient presented to the hospital with transient amnesia after hip surgery on 11/19/21. MRI of the head today showed "Encephalomalacia within the right occipital lobe suggestive of old infarction". Patient and deny any known neurological event or vision changes. These findings were discussed with Dr. Valera from Tele stroke and he recommended that she be started on Aspirin 81mg PO daily for life. Plan: Start Aspirin 81mg PO daily for life. (5) History of hip replacement Assessment/Plan: Patient has a recent history or right hip replacement on 11/19/2021 at [facility] and was discharged home on 11/20/2021. She has 10 cm incision to right hip insitu with postop dressing. She was taking oxycodone and tramadol for pain. She was prescribed a 7 day coarse of Cefadroxil 500mg PO twice daily and is on day 3 of 7. Plan: Continue to place ice on incision site. Provide Toradol 30mg IVP every 4 hours prn for pain. Continue Oxycodone 5mg PO every 4 hours prn pain. Continue post-op antibiotic Cefadroxil 500mg PO twice daily from home supply due to hospital availability. Out of bed as tolerated with stand by assistance. Continue with PT tomorrow. OT consult tomorrow. (6) Sjogrens syndrome Assessment/Plan: Patient has a history of Sjogren's syndrome with manifestation of dry mouth and eyes. reports patient takes immunosuppressant Azathioprine 25mg PO daily for her Sjogren's syndrome. No salivary gland enlargement. Plan: Provide oral hygiene and add artificial saliva as needed. Continue Refresh eye hydrating drops every 4 hours as needed. Start Azathioprine 25mg PO daily from home medication due to pharmacy availability. (7) History of breast cancer in adulthood Assessment/Plan: Patient has history of left breast cancer in 2016 with lumpectomy. She is followed by [facility] with biannual visits with her oncologist. She take Anastrozole 1mg PO daily. Plan: Continue home medication Anastrozole 1mg PO daily. (8) Hypothyroid Assessment/Plan: Patient has a history of hypothyroidism. She takes Levothyroxine 125mg PO daily. She denies heat or cold intolerance, changes in weight, or fatigue. Plan: Obtain TSH to evaluate effective levothyroxine dosing. Resume Levothyroxine 125mg PO daily. (9) Depression Assessment/Plan: Patient has a history of depression and takes Paxil 30mg PO daily. She currently denies feeling depressed but reports feeling "Bewildered" with current situation. Plan: Resume home medication Paxil 30mg PO daily. - Current Meds Current Meds: Current Medications Generic Name Dose Route Start Last Admin Trade Name Darinq PRN Reason Stop Dose Admin Acetaminophen 650 mg 11/21/21 20:14 11/22/21 11:50 Acetaminophen 325 Mg Tablet PO 650 mg Q4HR PRN Administration Pain 1 to 4 Levothyroxine Sodium 125 mcg 11/22/21 07:00 11/22/21 06:13 Levothyroxine 125 Mcg Tablet PO 125 mcg QDAC HENRI Administration Oxycodone HCl 5 mg 11/21/21 20:14 11/22/21 11:51 Oxycodone 5 Mg Tablet PO 5 mg Q4HR PRN Administration Pain 5 to 7 Paroxetine HCl 30 mg 11/22/21 09:00 11/22/21 09:24 Paroxetine 10 Mg Tablet PO 30 mg DAILY HENRI Administration Azathioprine 50 Mg 0.5 each 11/22/21 13:00 11/22/21 13:04 Tabs PO 0.5 each DAILY HENRI Administration Cefadroxil 500 Mg 1 each 11/22/21 13:00 11/22/21 13:04 Tabs PO 1 each BID HENRI Administration Sodium Chloride 10 ml 11/22/21 01:00 11/22/21 09:26 Sodium Chloride Flush 0.9% 10 Ml Syringe IVP 10 ml 0100,0900,1700 HENRI Administration - Lab Result Fish Bone Diagrams: 11/22/21 04:30 11/22/21 04:30 Subjective - Subjective Patient Reports: Resting Comfortably (Sitting in bed eating breakfast. Reports feeling "bewildered" by not remembering events.) Nursing Reports: No Complaints Objective Vital Signs: Vital Signs - 24 hr 11/21/21 11/21/21 11/21/21 13:25 13:43 14:11 Temperature 35.7 C L 36.4 C L Heart Rate 92 87 86 Heart Rate [ Monitoring electrodes] Respiratory 16 22 17 Rate Blood Pressure 111/83 H 139/72 H 127/78 Blood Pressure [Right Brachial artery] O2 Saturation 94 99 96 11/21/21 11/21/21 11/21/21 15:12 15:30 16:00 Temperature 36.9 C Heart Rate 85 85 88 Heart Rate [ Monitoring electrodes] Respiratory 22 22 20 Rate Blood Pressure 135/77 H 137/78 H 131/78 H Blood Pressure [Right Brachial artery] O2 Saturation 97 97 97 11/21/21 11/21/21 11/21/21 17:00 17:30 19:01 Temperature 37.8 C Heart Rate 85 87 Heart Rate [ 87 Monitoring electrodes] Respiratory 24 22 16 Rate Blood Pressure 130/80 135/76 H Blood Pressure 131/66 H [Right Brachial artery] O2 Saturation 97 97 98 11/21/21 11/22/21 11/22/21 23:47 05:45 07:11 Temperature 37.5 C 37.2 C 37.4 C Heart Rate Heart Rate [ 91 90 98 Monitoring electrodes] Respiratory 18 16 18 Rate Blood Pressure Blood Pressure 107/85 H 93/65 114/77 [Right Brachial artery] O2 Saturation 92 93 94 Oxygen O2 Source Room air I&O (Last 24 Hrs): Intake and Output Totals x24h 11/20/21 11/21/21 11/22/21 23:59 23:59 23:59 Intake Total 100 430 Balance 100 430 General: Alert, No acute distress HEENT: Atraumatic, PERRLA, EOMI, Other (Dry mucous membranes) Neuro: Alert, Focal Deficits, Other (Disoriented to year and situation) Cardiovascular: Regular rate, Normal S1, Normal S2 Respiratory: Chest non-tender, No respiratory distress, Breath sounds nml Abdomen: Normal bowel sounds, Soft, No tenderness Extremities: No clubbing, No cyanosis, No edema Front/Back of Body, Lg (Color): 1 - Right hip replacement incision, insitu Skin: No rashes Comments/Notes: right hip 10cm incision insitu - Results Results: Laboratory Results WBC 4.3 x10^3/uL (4.8-10.8) L 11/22/21 04:30 RBC 2.92 10^6/uL (4.20-5.40) L 11/22/21 04:30 Hgb 8.5 g/dL (12.0-16.0) L 11/22/21 04:30 Hct 25.9 % (37.0-47.0) L 11/22/21 04:30 MCV 88.7 fL (81.0-99.0) 11/22/21 04:30 MCH 29.1 pg (27.0-31.0) 11/22/21 04:30 MCHC 32.8 g/dL (32.0-36.0) 11/22/21 04:30 RDW 16.2 % (12.0-15.0) H 11/22/21 04:30 Plt Count 192 10^3/uL (130-450) 11/22/21 04:30 MPV 9.7 fL (7.9-10.8) 11/22/21 04:30 Neut # (Auto) 3.1 10^3/uL (1.5-6.6) 11/22/21 04:30 Lymph # (Auto) 0.8 10^3/uL (1.5-3.5) L 11/22/21 04:30 Rush # (Auto) 0.4 10^3/uL (0.0-1.0) 11/22/21 04:30 Eos # (Auto) 0.0 10^3/uL (0.0-0.7) 11/22/21 04:30 Baso # (Auto) 0.0 10^3/uL (0.0-0.1) 11/22/21 04:30 Absolute Nucleated RBC 0.00 x10^3/uL 11/22/21 04:30 Nucleated RBC % 0.0 /100WBC 11/22/21 04:30 Sodium 138 mmol/L (135-145) 11/22/21 04:30 Potassium 3.3 mmol/L (3.5-5.0) L 11/22/21 04:30 Chloride 103 mmol/L (101-111) 11/22/21 04:30 Carbon Dioxide 25 mmol/L (21-32) 11/22/21 04:30 Anion Gap 10.0 (6-13) 11/22/21 04:30 BUN 9 mg/dL (6-20) 11/22/21 04:30 Creatinine 0.6 mg/dL (0.4-1.0) 11/22/21 04:30 Estimated GFR (MDRD) 97 (>89) 11/22/21 04:30 Glucose 97 mg/dL (70-100) 11/22/21 04:30 POC Whole Bld Glucose 95 mg/dL (70 - 100) 11/21/21 13:58 Calcium 8.6 mg/dL (8.5-10.3) 11/22/21 04:30 Total Bilirubin 0.8 mg/dL (0.2-1.0) 11/21/21 14:09 AST 26 IU/L (10-42) 11/21/21 14:09 ALT 14 IU/L (10-60) 11/21/21 14:09 Alkaline Phosphatase 55 IU/L (42-121) 11/21/21 14:09 Total Protein 6.8 g/dL (6.7-8.2) 11/21/21 14:09 Albumin 3.5 g/dL (3.2-5.5) 11/21/21 14:09 Globulin 3.3 g/dL (2.1-4.2) 11/21/21 14:09 Albumin/Globulin Ratio 1.1 (1.0-2.2) 11/21/21 14:09 Salicylates < 6.0 mg/dL 11/21/21 14:09 Urine Opiates Screen NEGATIVE (NEGATIVE) 11/21/21 15:30 Ur Oxycodone Screen POSITIVE (NEGATIVE) H 11/21/21 15:30 Urine Methadone Screen NEGATIVE (NEGATIVE) 11/21/21 15:30 Ur Propoxyphene Screen NEGATIVE (NEGATIVE) 11/21/21 15:30 Acetaminophen < 10 ug/mL (10-30) L 11/21/21 14:09 Ur Barbiturates Screen NEGATIVE (NEGATIVE) 11/21/21 15:30 Ur Tricyclics Screen NEGATIVE (NEGATIVE) 11/21/21 15:30 Ur Phencyclidine Scrn NEGATIVE (NEGATIVE) 11/21/21 15:30 Ur Amphetamine Screen NEGATIVE (NEGATIVE) 11/21/21 15:30 U Methamphetamines Scrn NEGATIVE (NEGATIVE) 11/21/21 15:30 U Benzodiazepines Scrn NEGATIVE (NEGATIVE) 11/21/21 15:30 Urine Cocaine Screen NEGATIVE (NEGATIVE) 11/21/21 15:30 U Cannabinoids Screen NEGATIVE (NEGATIVE) 11/21/21 15:30 Ethyl Alcohol < 5.0 mg/dL 11/21/21 14:09 SARS-CoV-2 (PCR) NOT DETECTED 11/21/21 15:45 - Procedures Procedures: Procedures INSPECTION OF LOWER INTESTINAL TRACT, ENDO (04/23/18) ABX Reporting Has patient been on IV antibiotics over the past 48 hours?: No
--- NOTE | 2021-11-22 13:12 | MRI Report ---
PROCEDURE: Brain W/WO INDICATIONS: amnesia CONTRAST: IV CONTRAST: Gadavist ml: 7.1 TECHNIQUE: Noncontrast axial T1 spin echo, axial T2 fast spin echo, sagittal and axial FLAIR, coronal T2 fast sp in echo, axial gradient echo, axial diffusion and ADC through the brain. After the administration of contrast, axial and coronal T1 spin echo with fat saturation through the brain. COMPARISON: CTA head and neck 11/21/2021 FINDINGS: Image quality: Excellent. CSF spaces: Basal cisterns are patent. No extra-axial fluid collections. Ventricles are normal in size and shape. Brain: No midline shift. No intracranial bleeds or masses. No abnormal intracranial enhancement. There is cerebral volume loss for age. There is periventricular white matter chronic small vessel is chemic change. The brainstem appears normal. Diffusion-weighted images demonstrate no acute ischemi c insults. Encephalomalacia is present within the right occipital lobe suggestive of old infarction. Normal intravascular flow voids are present. Skull and face: Calvarial marrow is normal in signal. Orbits appear normal. Sinuses: Sinuses and mastoids appear clear. IMPRESSION: 1. No acute intracranial process. No visualized acute ischemia. 2. Moderate to severe atrophy and chronic microvascular ischemic changes. Reviewed by: Parvin Guo MD on 11/22/2021 1:10 PM PST Approved by: Parvin Guo MD on 11/22/2021 1:10 PM PST Station ID: [id number]
[2021-11-22] MEDS ORDERED: GADOBUTROL 7.5 MMOL/7.5 ML VIAL IVP ONE (16:18)
[2021-11-22] MEDS: SODIUM CHLORIDE 0.9% 1,000 ML IV SCH (19:29)
[2021-11-23] MEDS: SODIUM CHLORIDE FLUSH 0.9% 10 ML SYRINGE IVP SCH ×2 (00:51→08:49)
[2021-11-23 04:28] LABS: BASOPHILS % (AUTO) 0.5 %; EOSINOPHILS % (AUTO) 0.3 %; HCT - HEMATOCRIT 27.6 % (37.0-47.0); HGB - HEMOGLOBIN 8.9 g/dL (12.0-16.0); LYMPHOCYTES # (AUTO) 0.7 10^3/uL (1.5-3.5); LYMPHOCYTES % (AUTO) 18.1 %; MEAN CORPUSCULAR HEMOGLOBIN 28.7 pg (27.0-31.0); MEAN CORPUSCULAR HGB CONC 32.2 g/dL (32.0-36.0); MEAN PLATELET VOLUME 9.4 fL (7.9-10.8); MONOCYTES # (AUTO) 0.3 10^3/uL (0.0-1.0); MONOCYTES % (AUTO) 7.9 %; NEUTROPHILS # (AUTO) 2.9 10^3/uL (1.5-6.6); NEUTROPHILS % (AUTO) 72.9 %; PLT - PLATELET COUNT 210 10^3/uL (130-450); RED CELL DISTRIBUTION WIDTH 16.3 % (12.0-15.0); WHITE BLOOD COUNT 3.9 x10^3/uL (4.8-10.8)
[2021-11-23 04:36] LABS: CALCIUM 8.2 mg/dL (8.5-10.3); CREATININE 0.6 mg/dL (0.4-1.0); POTASSIUM 3.5 mmol/L (3.5-5.0)
[2021-11-23 04:45] LABS: CHOLESTEROL 121 mg/dL; HDL CHOLESTEROL 30 mg/dL; LDL CHOLESTEROL,CALCULATED 75 mg/dL; LDL/HDL RATIO 2.5 (<4.4); TRIGLYCERIDES 79 mg/dL; VLDL CHOLESTEROL 16 mg/dL
[2021-11-23] MEDS: LEVOTHYROXINE 125 MCG TABLET PO SCH (06:25)
[2021-11-23] MEDS ORDERED: LEVOTHYROXINE 125 MCG TABLET PO SCH (07:00)
[2021-11-23] MEDS ORDERED: PANTOPRAZOLE 40 MG TABLET PO SCH ×3 (07:00→11:00)
[2021-11-23] MEDS ORDERED: MULTIVITAMIN TABLET PO SCH (08:00)
[2021-11-23] MEDS: SODIUM CHLORIDE 0.9% 1,000 ML IV SCH (08:43)
[2021-11-23] MEDS: ASPIRIN EC 81 MG TABLET PO SCH (08:43)
[2021-11-23] MEDS: ANASTROZOLE 1 MG TABLET PO SCH (08:44)
[2021-11-23] MEDS: PARoxetine 10 MG TABLET PO SCH (08:48)
[2021-11-23] MEDS: CEFADROXIL 500 MG PO SCH (08:50)
[2021-11-23] MEDS: AZATHIOPRINE 50 MG PO SCH (08:50)
[2021-11-23] MEDS ORDERED: polyethylene glycoL 3350 17 GM PACKET PO SCH (09:00)
--- NOTE | 2021-11-23 11:28 | Discharge Plan ---
Discharge Plan Problem Reviewed?: Yes Disposition: Home, Self Care Condition: Stable Diet: Regular Activity Restrictions: Activity as Tolerated Shower Restrictions: No Driving Restrictions: No Health Concerns: You had a hip replacement November 19, 2021. There is no other new events in your life when you presented to our emergency room with confusion and memory los s. You could not remember your recent surgery, could not remember events over the last year. We did a brain scan to look for stroke or brain trauma; we did blood work to look for infection, and we found no evidence of these things as to the cause of your sudden, very acute memory loss. There is a disorder called transient global amnesia and we think you have this. It is a self resolving disorder. To be honest most of the time we do not know why it happens. It is not dangerous or life-threatening. It will resolve on its own. Plan of Treatment: Please see your primary care provider in follow-up. I will let Dr. Kaye know that you were in the hospital and why. I have also given you a handout from the [facility] for you and your to read on this disorder. Care Goals: To regain your memory as soon as possible. Unfortunately this will happen with just patience and time. It will come back. Assessment: Unfortunately, the patient is still having dismay at not remembering her surgery or certain events. She is reassured is much as possible. She is going home to her who will be watching over her. No Smoking: If you smoke, Please STOP! Call for help. Follow-up with: Brenda Kaye MD [Primary Care Provider] -
[2021-11-23 11:40] VITALS: BP 113/56
--- NOTE | 2021-11-23 15:50 | DISCHARGE SUMMARY ---
Discharge Summary Admit Date: 11/21/21 Discharge Date: 11/23/21 Discharging Provider: Karli Figueroa MD Primary Care Provider: Brenda Kaye MD ( [facility]) Code Status: Attempt Resuscitation Condition at Discharge: Stable Discharge Disposition: 01 Home, Self Care - DIAGNOSES Discharge Diagnoses with Status of Each Condition: 1. Transient global amnesia 2. Orthostatic hypotension 3. Diffuse brain atrophy 4. History of stroke 5. History of hip replacement 6. Sjogren's syndrome 7. History of breast cancer 8. Hypothyroid 9. Depression - HPI History of Present Illness: Pleasant well nourished 76 year old female with history of left breast cancer with lumpectomy in 2016, Sjogren's syndrome on immunosuppressants, and right hip replacement on 11/19/21 at [facility]. She was discharged yesterday on oxycodone and Tramadol for pain and doing well. According to ([facility]) at 0800 today she woke up and was confused with amnesia. She continued to repeat herself and had no recollection of her recent surgery or of the events over the past year that led up to the event. 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 She is alert to self, birthday, location, month but not year. She is forgetful of the situations leading up hospital visit and does not recall events over the last few years. In the emergency room the CTA of neck is negative and CTA of the head was negative with incidental findings of "mild encephalomalacia involving the medial margins between the right posterior parietal and occipital lobes". No focal ne urological deficits, CN II-XII intact. Equal strength bilaterally to upper and lower extremities. reports that the patient does not have a history of migraines, strokes, TIAs, epilepsy, hypertension, or hyperlipidemia. 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 Echocardiogram with ejection fraction 70 to 75%. Right ventricle normal. Bubble study negative for atrial shunt. No valvular heart disease. 2. Neck and head CT angiogram without intracranial artery vasculature. No evidence for occlusion, dissection, aneurysm or hemodynamically significant stenosis. CT of brain without acute intracranial abnormalities. 3. Brain MRI without acute intracranial process. No visualized acute ischemia. Moderate to severe atrophy and chronic microvascular ischemic changes. Encephalomalacia is present within the right occipital lobe suggestive of old infarct. - HOSPITAL COURSE Hospital Course: She was initially placed in observation status. She presented as acute retrogr dre amnesia with repetitive questions. She continued to have gaps in her memory where she could not remember her surgery. But she was always alert to self, location, month, year. Work-up with procedures were as as stated above. Telestroke was contacted with findings and they recommended cholesterol panel along with physical therapy and Occupational Therapy evaluation. She had some orthostatic hypotension. She was given 2 L of fluid and by discharge that had resolved. Patient and also reported that she drinks 1 to 2 glasses of wine a night. 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 The results of her MRI were discussed with them letting them know that she had a previous stroke resulting encephalomalacia. The thought process is that she may have transient global amnesia due to orthostatic hypotension, previous history of stroke. She was stable throughout her stay without arrhythmias. She was changed She was evaluated and continued physical therapy once for the hip replacement. She is discharged to home and to continue her usual home regimen. She has not completely recovered at discharge and was given information from the [facility] on transient global amnesia. Her was also at the bedside. At discharge temperature 37.9. Heart rate 94. Blood pressure 113/56. Respirations 16. 94% on room air. She was very anxious to go home. Neck was supple. Lungs were clear to auscultation and percussion. PMI is normally placed. Regular rate and rhythm. Abdomen was benign. Neurologically she was seen twice. Both times she was alert to person, place, day. But unhappy and not remembering her surgery or why she even had it. She did not have any focal deficits. Speech was lucid and intact. Cranial nerves normal. [id number] was normal. Romberg negative. Greater than 30 minutes was spent coordinating discharge. - ALLERGIES Allergies/Adverse Reactions: Allergies Allergy/AdvReac Type Severity Reaction Status Date / Time bee venom protein (honey bee) Allergy Edema Verified 11/21/21 13:31 fluconazole [From Diflucan] Allergy Hives Verified 09/23/19 14:27 - MEDICATIONS Home Medications: Ambulatory Orders Medication Instructions Recorded Confirmed PARoxetine [Paxil] 30 mg PO DAILY 06/23/15 11/21/21 azaTHIOprine [Imuran] 25 mg PO DAILY 06/23/15 11/22/21 oxyCODONE [Roxicodone] 5 - 10 mg PO Q4-6H PRN 11/21/21 11/21/21 traMADol [Ultram] 50 - 100 mg PO Q4-6H PRN 11/21/21 11/21/21 Anastrozole 1 mg PO DAILY 11/22/21 11/22/21 Aspirin [Aspirin EC] 81 mg PO BID 11/22/21 11/22/21 Cefadroxil [Duricef] 500 mg PO BID 11/22/21 11/22/21 Levothyroxine [Synthroid] 125 mcg PO QDAC 11/22/21 11/22/21 Multivitamin 1 tab PO DAILY 11/22/21 11/22/21 Omeprazole Magnesium 20 mg PO DAILY 11/22/21 11/22/21 - LABS Result Diagrams: 11/23/21 04:19 11/23/21 04:19
== END 2021-11-23 12:26 | disposition home or self-care (01) | DRG 72 ==
LOC: ED 13:20 → MS2 18:31 → OBSVTOIN 11-22 16:38
PROVIDERS: ADMIT Internal Medicine; ATTEND Specialist
DX: G45.4 Transient global amnesia (principal); I95.1 Orthostatic hypotension; G31.9 Degenerative disease of nervous system, unspecified; Z86.73 Personal history of transient ischemic attack (TIA), and cerebral infarction without residual deficits; Z96.641 Presence of right artificial hip joint; M35.00 Sjogren syndrome, unspecified; Z85.3 Personal history of malignant neoplasm of breast; E03.9 Hypothyroidism, unspecified; F32.A Depression, unspecified; Z79.899 Other long term (current) drug therapy; Z20.822 Contact with and (suspected) exposure to COVID-19; R51.9 Headache, unspecified
CPT/HCPCS: 36415; 70496; 70498; 70553; 80048; 80053; 80061; 80306; 80307; 82140; 84443; 85025; 87635; 93005; 93306; 93308; 97116; 97161; 99283; 99285; A9270; A9585; G0378; G0480; 80320; 80329; 83721

== ENCOUNTER 2023-01-10 14:06 | Outpatient (CLI) | payer MEDICARE, OTHER ==
[2023-01-10 20:17] LABS: ALBUMIN 4.3 g/dL (3.2-5.5); ALKALINE PHOSPHATASE 68 IU/L (42-121); ALT ALANINE AMINOTRANSFERASE 14 IU/L (10-60); AST ASPARTATE AMINOTRANSFERASE 24 IU/L (10-42); BILIRUBIN,TOTAL 0.5 mg/dL (0.2-1.0); BUN - BLOOD UREA NITROGEN 13 mg/dL (6-20); CREATININE 0.7 mg/dL (0.4-1.0); GFR - MDRD 81 (>89); TOTAL PROTEIN 8.2 g/dL (6.7-8.2)
[2023-01-10 20:20] LABS: BILIRUBIN,DIRECT < 0.1 mg/dL (0.1-0.5)
== END 2023-01-10 14:07 | disposition home or self-care (01) ==
LOC: LAB.S 14:06
PROVIDERS: ATTEND Physician Assistant Medical
DX: B35.1 Tinea unguium (principal)
CPT/HCPCS: 36415; 80076; 82565; 84520

== ENCOUNTER 2023-02-17 14:25 | Outpatient (CLI) | payer MEDICARE, OTHER ==
[2023-02-17 20:00] LABS: ALBUMIN 4.1 g/dL (3.2-5.5); ALKALINE PHOSPHATASE 57 IU/L (42-121); ALT ALANINE AMINOTRANSFERASE 13 IU/L (10-60); AST ASPARTATE AMINOTRANSFERASE 23 IU/L (10-42); BILIRUBIN,TOTAL 0.5 mg/dL (0.2-1.0); BUN - BLOOD UREA NITROGEN 14 mg/dL (6-20); CREATININE 0.7 mg/dL (0.4-1.0); GFR - MDRD 81 (>89)
[2023-02-17 20:14] LABS: BILIRUBIN,DIRECT < 0.1 mg/dL (0.1-0.5)
== END 2023-02-17 14:26 | disposition home or self-care (01) ==
LOC: LAB.S 14:25
PROVIDERS: ATTEND Physician Assistant Medical
DX: B35.1 Tinea unguium (principal)
CPT/HCPCS: 36415; 80076; 82565; 84520

== ENCOUNTER 2023-03-31 06:19 | Day surgery (SDC) | payer MEDICARE, OTHER ==
[2023-03-31] MEDS ORDERED: LACTATED RINGERS 1,000 ML IV ONE ×2 (06:32→08:21)
[2023-03-31] MEDS ORDERED: PROPOFOL 500 MG/50 ML 1,000 MG/100 ML VIAL ONE (06:52)
[2023-03-31] MEDS ORDERED: LIDOCAINE-PF 2% 10 ML AMP SUBQ ONE (06:54)
--- NOTE | 2023-03-31 07:10 | ANESTHESIA ---
Pre-Anesthesia VS, & Labs - Diagnosis anemia - Procedure EGD + colonoscopy Vital Signs: Temp Pulse Resp BP Pulse Ox O2 Flow Rate 36.0 C L 90 16 121/86 H 97 0 03/31/23 06:34 03/31/23 06:34 03/31/23 06:34 03/31/23 06:34 03/31/23 06:34 03/31/23 06:34 Height: 5 ft 1 in Weight (kg): 65 kg Body Mass Index: 27.1 BMI Classification: Overweight - NPO >8 hours - Is Patient ?: No - Lab Results Lab results reviewed: Yes Home Medications and Allergies Home Medications: Ambulatory Orders Cyanocobalamin (Vitamin B-12) [Vitamin B12] 1 tab ORAL DAILY 03/30/23 terbinafine HCL [Terbinafine HCl] 250 mg PO DAILY 03/30/23 PARoxetine [Paxil] 30 mg PO DAILY 06/23/15 azaTHIOprine [Imuran] 25 mg PO DAILY 06/23/15 Levothyroxine [Synthroid] 125 mcg PO QDAC 11/22/21 Multivitamin 1 tab PO DAILY 11/22/21 Omeprazole Magnesium 20 mg PO DAILY 11/22/21 Cyanocobalamin (Vitamin B-12) [Vitamin B12] 1 tab ORAL DAILY 03/30/23 terbinafine HCL [Terbinafine HCl] 250 mg PO DAILY 03/30/23 Allergies/Adverse Reactions: Allergies Allergy/AdvReac Type Severity Reaction Status Date / Time bee venom protein (honey bee) Allergy Edema Verified 11/21/21 13:31 fluconazole [From Diflucan] Allergy Hives Verified 09/23/19 14:27 Anes History & Medical History - Anesthetic History Anesthesia Complications: reports: Other-see comment (1 time 24-48h postop global amnesia post hip surgery) Family history of Anesthesia Complications: Denies Family history of Malignant Hyperthermia: Denies - Medical History Cardiovascular: reports: None Pulmonary: reports: None Gastrointestinal: reports: GERD, Hepatitis, Diverticulitis, Other Urinary: reports: None Neuro: reports: Headaches, Peripheral neuropathy, Other (SJOGRENS) Musculoskeletal: reports: Osteoarthritis, Chronic back pain Endocrine/Autoimmune: reports: HyPOthyroidism, Other Blood Disorders: reports: None Skin: reports: None Smoking Status: Never smoker - Surgical History General: reports: Colonoscopy Eyes Ears Nose Throat (EENT): reports: Tonsil/Adenoidectomy Orthopedic: reports: Other Exam General: Alert, Oriented x3, Cooperative Dental: WNL Mouth Openin Fingerbreadth Neck Mobility: Normal Mallampati classification: II Thyromental Distance: 4-6 cm Respiratory: Lungs clear Cardiovascular: Regular rate Plan Anesthesia Type: General Consent for Procedure(s) Verified and Reviewed: Yes Code Status: Attempt Resuscitation ASA classification: 2-Mild systemic disease Is this case an emergency?: No
--- NOTE | 2023-03-31 07:21 | HISTORY & PHYSICAL EXAMINATION ---
Chief Complaint - Chief Complaint Chief Complaint: here for egd and colonoscopy History of Present Illness - History Obtained From Records Reviewed: yes History obtained from: pt Exam Limitations: none - History of Present Illness HPI Comment/Other: father had colon cancer. her last colonoscopy was in 2018. she is due for screening. hx anemia. she has been referred for egd. she takes omeprazole. 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 She moved to [place] with her 40 years ago. They have 2 adult children a son and daughter who [place] [facility]. - Substance History Use: Uses substance without health or social issues: Alcohol (Drinks 1-2 glasses of wine nightly. Stopped 1 week ago in preperation for hip surgery.) - POLST Patient has POLST: No POLST Status: Full Code Meds/Allgy - Home Medications Home Medications: Ambulatory Orders Medication Instructions Recorded Confirmed PARoxetine [Paxil] 30 mg PO DAILY 06/23/15 03/30/23 azaTHIOprine [Imuran] 25 mg PO DAILY 06/23/15 03/31/23 Levothyroxine [Synthroid] 125 mcg PO QDAC 11/22/21 03/31/23 Multivitamin 1 tab PO DAILY 11/22/21 03/30/23 Omeprazole Magnesium 20 mg PO DAILY 11/22/21 03/30/23 Cyanocobalamin (Vitamin B-12) 1 tab ORAL DAILY 07/06/23 07/06/23 [Vitamin B12] terbinafine HCL [Terbinafine HCl] 250 mg PO DAILY 03/30/23 03/30/23 - Allergies Allergies/Adverse Reactions: Allergies Allergy/AdvReac Type Severity Reaction Status Date / Time bee venom protein (honey bee) Allergy Edema Verified 11/21/21 13:31 fluconazole [From Diflucan] Allergy Hives Verified 09/23/19 14:27 Review of Systems - Other Findings Other Findings: 10 pt ros as above otherwise unremarkable Exam - Vital Signs Vital Signs: Vital Signs x48h Temp Pulse Resp BP Pulse Ox O2 Flow Rate 03/31/23 06:34 36.0 C L 90 16 121/86 H 97 0 - Physical Exam General Appearance: positive: No acute distress, Alert Eyes Bilateral: positive: PERRL, EOMI ENT: positive: No signs of dehydration Neck: positive: No JVD, Trachea midline Respiratory: positive: No respiratory distress Cardiovascular: positive: Regular rate & rhythm Conclusion/Plan - Problem List (1) Family hx of colon cancer Conclusion/Plan: plan colonoscopy for screening and egd for anemia. parq held and consent obtained - Lab Results Lab results reviewed: Yes
[2023-03-31] MEDS ORDERED: PROPOFOL 200 MG/20 ML VIAL IVP ONE (08:08)
[2023-03-31 08:45] VITALS: BP 101/63
--- NOTE | 2023-03-31 13:49 | ANESTHESIA POST OP EVALUATION ---
Anesthesia Post Eval - Post Anesthesia Eval Vitals: Last Vital Signs Temp 36.0 C L 03/31/23 08:40 Pulse 73 03/31/23 08:40 Resp 16 03/31/23 08:40 BP 101/63 03/31/23 08:40 Pulse Ox 100 03/31/23 08:40 O2 Flow Rate 0 03/31/23 06:34 CV Function Including HR & BP: Stable Pain Control: Satisfactory Nausea & Vomiting: Negative Mental Status: Baseline Respiratory Status: Airway Patent Hydration Status: Satisfactory Anesthesia Complications: None
== END 2023-03-31 06:20 | disposition home or self-care (01) ==
LOC: SDS 06:19
PROVIDERS: ATTEND Surgery
PROC: 0DB68ZX Excision of Stomach, Via Natural or Artificial Opening Endoscopic, Diagnostic (ICD-10-PCS; 2023-03-31)
PROC: 0DB58ZX Excision of Esophagus, Via Natural or Artificial Opening Endoscopic, Diagnostic (ICD-10-PCS; 2023-03-31)
PROC: 0DJD8ZZ Inspection of Lower Intestinal Tract, Via Natural or Artificial Opening Endoscopic (ICD-10-PCS; principal; 2023-03-31 07:30)
PROC: 0DB98ZX Excision of Duodenum, Via Natural or Artificial Opening Endoscopic, Diagnostic (ICD-10-PCS; 2023-03-31 07:30)
DX: Z12.11 Encounter for screening for malignant neoplasm of colon (principal); D50.9 Iron deficiency anemia, unspecified; K57.30 Diverticulosis of large intestine without perforation or abscess without bleeding; K29.50 Unspecified chronic gastritis without bleeding; K21.9 Gastro-esophageal reflux disease without esophagitis; Z80.0 Family history of malignant neoplasm of digestive organs
CPT/HCPCS: 43239; G0105; J7120

== ENCOUNTER 2023-05-15 10:37 | Outpatient (CLI) | payer MEDICARE, OTHER | END 2023-05-15 10:38 | disposition home or self-care (01) | LOC: LAB.S 10:37 | PROVIDERS: ATTEND Physician Assistant Medical | DX: Z53.9 Procedure and treatment not carried out, unspecified reason (principal) | CPT/HCPCS: 36415; 80076; 82565; 84520 ==

== ENCOUNTER 2023-07-13 13:40 | Outpatient (CLI) | payer MEDICARE, OTHER ==
[2023-07-13 19:46] LABS: BASOPHILS % (AUTO) 0.5 %; EOSINOPHILS % (AUTO) 0.8 %; HCT - HEMATOCRIT 39.5 % (37.0-47.0); HGB - HEMOGLOBIN 12.6 g/dL (12.0-16.0); LYMPHOCYTES # (AUTO) 0.9 10^3/uL (1.5-3.5); LYMPHOCYTES % (AUTO) 22.2 %; MEAN CORPUSCULAR HGB CONC 31.9 g/dL (32.0-36.0); MEAN CORPUSCULAR VOLUME 90.8 fL (81.0-99.0); MONOCYTES # (AUTO) 0.3 10^3/uL (0.0-1.0); MONOCYTES % (AUTO) 8.6 %; NEUTROPHILS # (AUTO) 2.7 10^3/uL (1.5-6.6); NEUTROPHILS % (AUTO) 67.6 %; PLT - PLATELET COUNT 199 10^3/uL (130-450); RED BLOOD COUNT 4.35 10^6/uL (4.20-5.40); RED CELL DISTRIBUTION WIDTH 20.4 % (12.0-15.0)
[2023-07-13 20:11] LABS: BUN - BLOOD UREA NITROGEN 12 mg/dL (6-20); CALCIUM 9.7 mg/dL (8.5-10.3); CARBON DIOXIDE - CO2 26 mmol/L (21-32); CHLORIDE 103 mmol/L (101-111); CREATININE 0.8 mg/dL (0.6-1.3); GFR - MDRD 69 (>89); GLUCOSE 91 mg/dL (74-104); IONIZED CALCIUM IF INDICATED NO; POTASSIUM 4.2 mmol/L (3.5-4.5); SODIUM 137 mmol/L (135-145)
[2023-07-13 20:23] LABS: PLATELET ESTIMATE, MANUAL NORMAL (130-450,000) (NORMAL); PLATELET MORPHOLOGY NORMAL APPEARANCE (NORMAL); RBC MORPHOLOGY (MULTIPLE) 3+ ANISOCYTOSIS (NORMAL); SLIDE REVIEW? Indicated
== END 2023-07-13 13:41 | disposition home or self-care (01) ==
LOC: LAB.S 13:40
PROVIDERS: ATTEND Internal Medicine
DX: D50.8 Other iron deficiency anemias (principal); M81.6 Localized osteoporosis [Lequesne]
CPT/HCPCS: 36415; 80048; 85025